=== PATIENT | female | born 1990 | race Caucasian/White ===

== ENCOUNTER → 2019-10-05 | Outpatient (CLI) | payer BC ==
--- NOTE | 2019-10-11 22:55 | HM ---
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 Rare isolated PACs and PVCs were noted. No significant symptoms were reported. There was no evidence of any significant bradyarrhythmia. FINAL IMPRESSION: Predominant sinus rhythm with average heart rate of 74 beats per minute. No significant arrhythmia was noted. No diary was provided. MMODSilvio / EMORYN: [id number] /
== END | disposition home or self-care (01) ==
LOC: RADECHMAIN 12:20
PROVIDERS: ATTEND Family Medicine
DX: R00.2 Palpitations (principal)
CPT/HCPCS: 93225; 93226